=== PATIENT | male | born 1950 | race Caucasian/White ===

== ENCOUNTER 2016-11-26 05:32 | Day surgery (SDC) | payer MEDICARE, OTHER ==
[~2016-11-26] VITALS: Ht 190.5 cm; Wt 93.1 kg
--- NOTE | ~2016-11-26 | OR ---
PATIENT'S NAME: DIANDRA [facility]DEN [facility] AGE: 66 Y [address] ROOM: [address] [address] LOCATION: [facility] [place] ADMIT DATE: 11/26/2016 OR/Procedure Report DISCHARGE DATE: FAMILY PHYSICIAN: Maciej Lopez MD ATTENDING PHYSICIAN: SAVANNAH ZAIDI SURGEON: Savannah Zaidi MD ROUGH AND TRUING MACHINE OPERATOR: None. DATE OF PROCEDURE: 11/26/2016 PREOPERATIVE DIAGNOSIS: Bulbar urethral stricture (1-2 cm). POSTOPERATIVE DIAGNOSIS: Bulbar urethral stricture (1-2 cm). OPERATIONS PERFORMED: 1. Anterior urethroplasty using excision and primary anastomotic technique. 2. Cystourethroscopy. ANESTHESIA: General. INDICATIONS FOR PROCEDURE: The patient is a pleasant 66-year-old male with history of weakening of his urinary stream, which started back in the 1980s. Ultimately, he was referred and I performed cystoscopy on 10/10/2016, and he was found to have a tight 10 to 12 Chinese in caliber bulbar urethral stricture, which appeared to be 1 to 2 cm in length on a retrograde urethrogram. The patient was explained the risks, benefits, indications, and alternatives to the procedure and wished to proceed and consented freely. DESCRIPTION OF OPERATION: The patient was brought back to the operating room, where he was placed on the OR table in the supine position. A surgical time- out was called where patient identification, surgical site, and procedure was then verified. The patient then underwent successful administration of general endotracheal anesthesia. I also did verify the patient received an Ancef IV antibiotic within an hour of beginning the procedure. The patient was then moved and placed in the low lithotomy position where his genital area was then prepped and draped in the usual sterile fashion. A red rubber had been placed per urethra and a midline perineal incision was made in the skin and soft tissue was then divided. The bulbospongiosus muscle was exposed and divided in the midline with the Bovie cautery. The urethra was exposed ventrally and then laterally. Then I began the dorsal dissection, mobilizing the urethra from its attachments. I took down the central perineal tendon. I was able to preserve the blood supply at the 5 o'clock and 7 o'clock positions. The stricture was right at the bulbar membranous region. I opened up the urethra dorsally and placed stay sutures within the urethra. I transected the urethra at the level of the anastomosis, and excised the stricture, which was approximately 1 to 2 cm in length. I then spatulated the PATIENT'S NAME: DIANDRA [facility] AGE: 66 Y [address] ROOM: [address] [address] LOCATION: [facility] [place] ADMIT DATE: 11/26/2016 OR/Procedure Report DISCHARGE DATE: FAMILY PHYSICIAN: Maciej Lopez MD ATTENDING PHYSICIAN: SAVANNAH ZAIDI proximal stump dorsally and distal stump ventrally. I then used a 5-0 PDS to perform the anastomosis placing interrupted sutures all along the dorsal back wall. I then placed a 14-Chinese silicone Recio catheter without any difficulty. I then completed the anastomosis placing interrupted 5-0 PDS sutures all along the ventral aspect and this gave a nice water tight capacious and secure anastomosis. I then used a 4-0 Maxon to reapproximate the bulbospongiosus muscle in the fashion. I then closed the subcutaneous tissues in 2 additional layers using a 3-0 PDS and then a 4-0 PDS suture. The skin was closed with a 4-0 Monocryl running suture. Of note, I also throughout the procedure had performed cystourethroscopy and there was no evidence of any additional strictures and his prostatic urethra was notable for some only mild bilobar hyperplasia of the prostate with no median lobe. His bladder was negative for any bladder tumors, cellules, or diverticula; and his ureteral orifices were in their orthotopic location. There was some mild bladder trabeculation. There was no evidence of any bladder stones. Cystoscopy also did help us identify the stricture beginning in the proximal bulbar urethra extending just distal to the membranous urethra. Dressings were then applied to the perineum and a scrotal support and a Recio catheter was placed to gravity drainage. The patient was then taken out of the lithotomy position where he was awoken from general anesthesia, extubated, and transferred to the recovery bed and transported to the recovery room in good condition. COMPLICATIONS: None. ESTIMATED BLOOD LOSS: Less than 50 mL. DRAINS: Indwelling Recio catheter to gravity drainage. SPECIMENS: Urethral stricture for pathologic analysis. FOLLOWUP PLAN: We will plan to admit the patient overnight for observation with likely discharge home tomorrow, and then will have him back in 2 weeks for a pericatheter retrograde urethrogram with possible catheter removal at that time. SAVANNAH ZAIDI MD GP/kaylahl /[id number] PATIENT'S NAME: DIANDRA [facility]DEN [facility] AGE: 66 Y [address] ROOM: [place] [address] LOCATION: [facility] [place] ADMIT DATE: 11/26/2016 OR/Procedure Report DISCHARGE DATE: FAMILY PHYSICIAN: Maciej Lopez MD ATTENDING PHYSICIAN: SAVANNAH ZAIDI CC: Maciej Lopez MD d: 11/26/16 0959 t: 11/27/16 0840, OPERATIVE SUMMARY
--- NOTE | ~2016-11-26 | HP ---
PATIENT'S NAME: [facility] AGE: 66 Y [address] ROOM: [place] [address] LOCATION: [facility] ADMIT DATE: 11/26/2016 History & Physical DISCHARGE DATE: FAMILY PHYSICIAN: PHYSICIAN, UNKNOWN ATTENDING PHYSICIAN: SAVANNAH LISA DATE OF SERVICE: This H and P is for upcoming surgery scheduled November 26, 2016, at [facility]. CHIEF COMPLAINT: Urethral stricture. HISTORY OF PRESENT ILLNESS: The patient is a pleasant, 66-year-old male, who was referred for further evaluation. The patient has reported a long history of urinary symptoms dating back into the . His symptoms had progressively worsened. He also has a history of BPH for which he had remained on tamsulosin 0.4 mg daily for at least 3 years. His PSA history includes a PSA of 0.71 (June 05, 2016), 0.46 (July 30, 2011), and 0.34 (October 13, 2008). His AUA symptom score in clinic (October 10, 2016), was 23 (severe symptoms with a quality life score of 4 (mostly dissatisfied). He then underwent cystoscopy, October 10, 2016, where he was found to have a 10-12 Thai in caliber bulbar urethral stricture, which was not passable with the flexible cystoscope. He then underwent further evaluation with a retrograde urethrogram performed, October 21, 2016, consistent with a 1 cm bulbar urethral stricture. The patient denies any previous procedures and therapy for his prostate. He denies any prior urethral trauma. PAST MEDICAL HISTORY: 1. Osteoarthritis. 2. Asthma. 3. BPH. PAST SURGICAL HISTORY: Tonsillectomy. FAMILY HISTORY: Bladder cancer in his uncle. He denies any known family history of prostate cancer. 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 He denies any tobacco PATIENT'S NAME: [facility] AGE: 66 Y [address] ROOM: [place] [address] LOCATION: [facility] ADMIT DATE: 11/26/2016 History & Physical DISCHARGE DATE: FAMILY PHYSICIAN: PHYSICIAN, UNKNOWN ATTENDING PHYSICIAN: SAVANNAH LISA use and does drink alcohol on occasion. ALLERGIES: PENICILLIN. CURRENT MEDICATIONS: See attached medication list. REVIEW OF SYSTEMS: A full 10+ point review of systems was performed and is included on several pages attached in the chart. Pertinent positive and negative findings also included in history of present illness. PHYSICAL EXAMINATION: VITAL SIGNS: The patient's height is 6 feet 1 inch, weight is 220 pounds. CONSTITUTIONAL: No acute distress, hemodynamically stable. HEENT: Extraocular muscles intact. Mucous membranes are moist. No drainage per ears and nose. CARDIAC: Good peripheral perfusion. RESPIRATORY: No audible wheezing, no stridor. Respirations do not appear labored. GASTROINTESTINAL: Abdomen is soft, nontender, nondistended. BACK: No CVA tenderness. MUSCULOSKELETAL: Normal muscle tone and range of motion. SKIN: No rashes or open sores. NEUROLOGIC: No focal deficits noted. PSYCHIATRIC: Answers questions appropriately with normal affect. HEMATOLOGIC: No bruising or active sites of bleeding. IMPRESSION: 1. Bulbar urethral stricture. 2. History of urinary tract infection. PLAN: I had a long discussion with the patient regarding treatment options for urethral stricture disease. I explained to him that the endoscopic procedure has less risk, morbidity, and recovery with a trade off; however, of decreased success rate. I reviewed with him the success rate of primary dilation/direct vision internal urethrotomy at approximately 50%, secondary procedures at 20%, and a tertiary procedures at 10%. I also discussed with him the open urethroplasty, which would take approximately 2-3 hours and typically involves an overnight stay in the hospital. I discussed urethroplasty including excision with primary anastomosis (anastomotic urethroplasty) and possible buccal mucosal PATIENT'S NAME: [facility] AGE: 66 Y [address] ROOM: [place], [place] [address] LOCATION: [facility] ADMIT DATE: 11/26/2016 History & Physical DISCHARGE DATE: FAMILY PHYSICIAN: PHYSICIAN, UNKNOWN ATTENDING PHYSICIAN: SAVANNAH LISA urethroplasty. Postoperatively, the catheter would be in place for 2-3 weeks. The success rate with the procedure ranges from 85% to 95% (success remaining no future need for urethral dilation). The risks of the procedure include bleeding, infection, a 5% risk of erectile dysfunction, and a 1% risk of penile curvature. I also warned him of the consequences of untreated urethral stricture, which are rare, but severe such as urinary tract infection, bladder pain, stone and bladder failure (myogenic failure) resulting in permanent urinary retention. At this point, the patient would like to proceed with an anterior anastomotic urethroplasty, which is tentatively scheduled for November 26, 2016. MD LUNA YAO/raad /[id number] D: [id number] T: [id number] HISTORY & PHYSICAL
[~2016-11-26 05:32] MED LIST: ALEVE220 MG PO; FLOMAX0.4 MG PO; THERA-VITE W/ B1 TAB PO
[2016-11-26 06:08] LABS: BASOPHIL # 0.1 K/uL (0.0-0.2); BASOPHIL % 0.6 %; EOSINOPHIL # 0.2 K/uL (0.0-0.5); EOSINOPHIL % 2.5 %; IMMATURE GRANULOCYTE % 0.4 %; LYMPHOCYTE # 2.6 K/uL (0.8-4.0); LYMPHOCYTE % 33.1 %; MCH 32.2 pg (27.0-34.0); MCHC 34.9 gm/dL (32.0-36.5); MCV 92.3 fl (83.0-98.0); MONOCYTE # 0.5 K/uL (0.0-1.0); MONOCYTE % 6.8 %; MPV 9.4 fl (9.4-12.4); NEUTROPHIL # (ANC) 4.4 K/uL (1.4-9.0); NEUTROPHIL % 56.6 %; NRBC % 0 /100WBC (0-0.00); PLATELET COUNT 261 K/uL (150-450); RBC 4.66 M/uL (3.50-5.50); RDW-CV 12.1 % (11.9-14.6); WBC 7.9 K/uL (4.0-11.0)
[2016-11-26 06:24] LABS: ALBUMIN 4.3 gm/dL (3.5-5.0); ALK PHOS 107 IU/L (33-138); ALT 49 IU/L (12-78); ANION GAP 11.3 (10.0-19.0); AST 34 IU/L (10-40); BLOOD UREA NITROGEN 24 mg/dL (6-24); CALCIUM 8.9 mg/dL (8.5-10.5); CHLORIDE 114 mMol/L (96-110); CO2 21 mMol/L (22-32); CREATININE 0.9 mg/dL (0.6-1.3); ESTIMATED GFR (MDRD EQUATION) > 60; POTASSIUM 4.3 mMol/L (3.7-5.1); SODIUM 142 mMol/L (135-145); TOTAL BILIRUBIN 0.5 mg/dL (0.0-1.5); TOTAL PROTEIN 7.1 g/dL (6.0-8.4)
--- NOTE | 2016-11-26 20:06 | NUR ---
AAOx3. Cooperative with cares. May be up in [facility] with assist. IV to RFA @120; may s/l @0600 if tolerating PO well. Tolerating regular soft diet well for dinner. Recio draining yellow urine w/850ml UOP. Jock support on; sutures to perineum. VSS, afebrile, on RA. Denies N/V/D and pain.
--- NOTE | 2016-11-27 05:40 | NUR ---
Significant Event: PATIENT IS ALERT AND ORIENTATED AMBULATES WITH STAND BY ASSISTANCE. VS WNL ON RA. DAVALOS INTACT AND DRAINING YELLOW URINE. IV TO L FA WITH FLUIDS RUNNING CAN BE SL IF DRINKING WELL THIS AM. REGULAR SOFT DIET ADVANCE TOLERATED. STITCHES TO HAILE/ANAL AREA MESH PANTY AND PAD IN PLACE. TO AMBULATE X5 THIS AM. NO COMPLAINTS OF PAIN OR DISCOMFORT. Follow up:
[2016-11-27 05:59] LABS: BASOPHIL % 0.2 %; EOSINOPHIL # 0.1 K/uL (0.0-0.5); EOSINOPHIL % 0.9 %; HEMATOCRIT 37.2 % (37.0-53.0); HEMOGLOBIN 12.9 g/dL (11.0-16.0); IMMATURE GRANULOCYTE # 0.1 K/uL (0.0-0.3); IMMATURE GRANULOCYTE % 0.5 %; LYMPHOCYTE # 2.1 K/uL (0.8-4.0); LYMPHOCYTE % 17.8 %; MCH 32.3 pg (27.0-34.0); MCHC 34.7 gm/dL (32.0-36.5); MCV 93.2 fl (83.0-98.0); MONOCYTE # 0.9 K/uL (0.0-1.0); MONOCYTE % 7.4 %; MPV 9.4 fl (9.4-12.4); NEUTROPHIL # (ANC) 8.6 K/uL (1.4-9.0); NEUTROPHIL % 73.2 %; NRBC % 0 /100WBC (0-0.00); PLATELET COUNT 214 K/uL (150-450); RBC 3.99 M/uL (3.50-5.50); WBC 11.7 K/uL (4.0-11.0)
[2016-11-27 06:16] LABS: ANION GAP 10.8 (10.0-19.0); BLOOD UREA NITROGEN 11 mg/dL (6-24); CALCIUM 8.4 mg/dL (8.5-10.5); CHLORIDE 112 mMol/L (96-110); CO2 25 mMol/L (22-32); CREATININE 0.7 mg/dL (0.6-1.3); ESTIMATED GFR (MDRD EQUATION) > 60; POTASSIUM 3.8 mMol/L (3.7-5.1); SODIUM 144 mMol/L (135-145)
[2016-11-27] MEDS ORDERED: COLACE100 MG PO (09:50)
[2016-11-27] MEDS ORDERED: NEOSPORIN1 PKT TOP (09:51)
[2016-11-27] MEDS ORDERED: NORCO 5-325 TA1 EACH PO (09:52)
[2016-11-27] MEDS ORDERED: LEVAQUIN500 MG PO (09:53)
[2016-11-27] MEDS ORDERED: VALIUM5 MG PO (09:55)
[2016-11-27] MEDS ORDERED: OXYBUTYNIN CHLOR5 M1 PO (09:56)
--- NOTE | 2016-11-27 10:30 | NUR ---
D: ORDERS RECEIVED FOR THE PATIENT TO BE DISCHARGED TO HOME TODAY WITH HIS DAVALOS CATHETER. I: DISMISSAL INSTRUCTIONS WERE PREPARED AND REVIEWED WITH THE PATIENT AND HIS VIRTUALLY. THE FOLLOWING INFORMATION WAS DISCUSSED INCLUDING [employer]RAMES TEACHING SHEETS PROVIDED: CYSTOSCOPY, URETHROPLASTY, DISCHARGE INSTURCTIONS-CARING FOR YOUR INDWELLING URINARY CATHETER, EMPTYING AND CLEANING YOUR URINARY CATHETER BAG, DISCHARGE INSTRUCTIONS FOR YOUR LEG BAG WITH DEMONSTATION, URETERAL STRICTURE SURGERY, COLACE, NEOSPORIN, PERCOCET, VALIUM, LEVOQUIN, OXYBUTYNIN, AND PREVENTING DVT. REVIEWED FOLLOW UP APPOINTMENT AND SCHEDULED PROCEDURES. REVIEWED ALL NEW MEDICATION AND THEY WILL NEED TO TAKE THEM TO THERE PHARMACY TO HAVE THEM FILLED. R: THE PATIENT AND HIS BOTH VERBALIZED UNDERSTANDING OF THE DISMISSAL EDUCATION AT THE TIME OF TEACHING WITH NO FURTHER QUESTIONS. P: THE ABOVE INFORMATION WAS SHARED WITH THE PRIMARY NURSE AND THE CHARGE NURSE THAT THE PATIENT'S DISMISSAL EDUCATION WAS COMPLETED. THE PATIENT IS READY FOR DISCHARGE TO THE [facility] VIA WHEEL CHAIR BY NURSING STAFF.
== END 2016-11-27 12:35 | disposition disaster alternative care site (69) ==
LOC: GSDC 05:32 → GMSU 05:32 → GPOC 09:00 → GMSU 13:25 → GSDC 11-27 12:35
PROVIDERS: Urology
PROC: 0TQD8ZZ Repair Urethra, Via Natural or Artificial Opening Endoscopic (ICD-10-PCS; principal; 2016-11-26)
DX: N35.9 Urethral stricture, unspecified (principal); N40.0 Benign prostatic hyperplasia without lower urinary tract symptoms; N39.0 Urinary tract infection, site not specified; J45.909 Unspecified asthma, uncomplicated; M19.90 Unspecified osteoarthritis, unspecified site; Z98.890 Other specified postprocedural states; Z88.0 Allergy status to penicillin; Z79.899 Other long term (current) drug therapy
CPT/HCPCS: J0690; J1885; J2001; J7030

== ENCOUNTER → 2016-12-05 | Outpatient (CLI) | payer MEDICARE, OTHER ==
[~2016-12-05] MED LIST changes: +COLACE100 MG PO; +LEVAQUIN500 MG PO; +NEOSPORIN1 PKT TOP; +NORCO 5-325 TA1 EACH PO; +OXYBUTYNIN CHLOR5 M1 PO; +VALIUM5 MG PO
== END | disposition disaster alternative care site (69) ==
LOC: GRAD 11:02
PROC: BT1BYZZ Fluoroscopy of Bladder and Urethra using Other Contrast (ICD-10-PCS; principal; 2016-12-05)
DX: Z51.89 Encounter for other specified aftercare (principal)

== ENCOUNTER → 2017-03-06 | Outpatient (CLI) | payer MEDICARE, OTHER | END | disposition disaster alternative care site (69) | LOC: GRAD 12:03 | DX: N35.9 Urethral stricture, unspecified (principal) ==